=== PATIENT | female | born 1955 | race Caucasian/White ===

== ENCOUNTER 2018-06-01 17:45 | Emergency (ER) | payer MEDICAID ==
[~2018-06-01] VITALS: Ht 160 cm; Wt 68.0 kg
[2018-06-01 17:48] VITALS: Ht 160 cm; Wt 68.0 kg
[2018-06-01 19:27] LABS: BASOPHIL % 0.6 % (0-2); PLATELET COUNT 286 x10^3mcL (130-400); RED CELL DISTRIBUTION WIDTH 13.1 % (11.5-14.5)
[2018-06-01 19:40] LABS: CALCIUM 9.5 mg/dL (8.5-10.1); CARBON DIOXIDE 30.8 mmol/L (21-32); CHLORIDE SERUM 106 mmol/L (98-107); CREATININE SERUM 0.7 mg/dL (0.6-1.0); GFR1 > 60 mL/min; GLUCOSE SERUM 101 mg/dL (74-106); POTASSIUM SERUM 3.4 mmol/L (3.5-5.1); SODIUM SERUM 144 mmol/L (136-145)
[2018-06-01 19:45] LABS: microscopic required? NO
[2018-06-01 19:51] LABS: ALBUMIN 4.1 g/dL (3.4-5.0); ALKALINE PHOSPHATASE 78 U/L (46-116); ALT/SGPT 26 U/L (14-59); AMYLASE 48 U/L (25-115); AST/SGOT 10 U/L (15-37); BILIRUBIN TOTAL 0.26 mg/dL (0.20-1.00); LIPASE 189 IU/L (73-393); T4(THYROXINE) 8.6 ug/dL (4.7-13.3)
[2018-06-01 19:52] LABS: CHOLESTEROL 224 mg/dL (<200); HDL CHOLESTEROL 61 mg/dL (40-60); TOTAL PROTEIN, SERUM 8.3 g/dL (6.4-8.2)
[2018-06-01 20:29] LABS: UA SPECIFIC GRAVITY 1.025 (1.005-1.035); urine erythrocyte NEGATIVE (NEGATIVE)
[2018-06-01 20:39] LABS: AMPHETAMINE QUAL UR NONE DETECTED (See below)
[2018-06-01 20:53] VITALS: BP 114/86
== END 2018-06-01 20:53 | disposition home or self-care (01) ==
LOC: ED 17:45 → EDBD 17:45 → ED 20:53
PROVIDERS: Emergency Medicine
DX: I16.0 Hypertensive urgency (principal); Z98.890 Other specified postprocedural states
CPT/HCPCS: 82962; J3490; Q0092

== ENCOUNTER 2019-06-02 11:05 | Emergency (ER) | payer MEDICAID ==
[~2019-06-02] VITALS: Ht 157.5 cm; Wt 72.1 kg
[2019-06-02 11:19] VITALS: Ht 157.5 cm; Wt 72.1 kg
[2019-06-02 12:10] LABS: CALCIUM 8.3 mg/dL (8.5-10.1); CARBON DIOXIDE 27.1 mmol/L (21-32); CHLORIDE SERUM 106 mmol/L (98-107); CREATININE SERUM 0.5 mg/dL (0.6-1.0); GFR1 > 60 mL/min; GLUCOSE SERUM 94 mg/dL (74-106); SODIUM SERUM 142 mmol/L (136-145)
[2019-06-02 12:15] LABS: ALBUMIN 3.8 g/dL (3.4-5.0); ALKALINE PHOSPHATASE 69 U/L (46-116); ALT/SGPT 34 U/L (14-59); AST/SGOT 12 U/L (15-37); BILIRUBIN TOTAL 0.3 mg/dL (0.20-1.00); HDL CHOLESTEROL 46 mg/dL (40-60); TOTAL PROTEIN, SERUM 7.9 g/dL (6.4-8.2)
[2019-06-02 12:16] LABS: CHOLESTEROL 205 mg/dL (<200); CHOLESTEROL/HDL RATIO 4.5; TRIGLYCERIDES 402 mg/dL (<150)
[2019-06-02 12:30] LABS: BASOPHIL % 0.5 % (0-2); PLATELET COUNT 327 x10^3mcL (130-400); RED CELL DISTRIBUTION WIDTH 13.4 % (11.5-14.5)
[2019-06-02 14:04] VITALS: BP 120/77
== END 2019-06-02 14:04 | disposition home or self-care (01) ==
LOC: ED 11:05
PROVIDERS: Emergency Medicine
DX: R07.2 Precordial pain (principal); I10 Essential (primary) hypertension; Z98.890 Other specified postprocedural states
CPT/HCPCS: 36415; 83880; Q0092